=== PATIENT | female | born 1965 | race Caucasian/White ===

== ENCOUNTER 2024-04-03 12:57 | Outpatient (RCR) | payer BC, SELFPAY | END 2024-04-03 23:59 | disposition home or self-care (01) | LOC: RPT 12:57 | PROVIDERS: ATTENDING PHYSICIAN Nurse Practitioner Acute Care | DX: M54.15 Radiculopathy, thoracolumbar region (principal); M47.816 Spondylosis without myelopathy or radiculopathy, lumbar region; M53.3 Sacrococcygeal disorders, not elsewhere classified; Z73.6 Limitation of activities due to disability | CPT/HCPCS: 97010; 97110; 97112; 97140; 97162 ==

== ENCOUNTER 2024-04-12 19:14 | Outpatient (RCR) | payer BC, SELFPAY | END 2024-04-12 23:59 | disposition home or self-care (01) | LOC: RPT 19:14 | PROVIDERS: ATTENDING PHYSICIAN Nurse Practitioner Acute Care | DX: M47.816 Spondylosis without myelopathy or radiculopathy, lumbar region (principal); M54.15 Radiculopathy, thoracolumbar region; Z73.6 Limitation of activities due to disability | CPT/HCPCS: 97010; 97110; 97112; 97140 ==

== ENCOUNTER → 2024-05-31 20:01 | Outpatient (REF) | payer BC, SELFPAY | LOC: MRI 3T 20:01 | PROVIDERS: ATTENDING PHYSICIAN Student in an Organized Health Care Education/Training Program | DX: M54.16 Radiculopathy, lumbar region (principal); M51.36 Other intervertebral disc degeneration, lumbar region | CPT/HCPCS: 72148 ==

== ENCOUNTER → 2024-08-31 12:56 | Outpatient (REF) | payer BC, SELFPAY | LOC: HWWDC 12:56 | PROVIDERS: ATTENDING PHYSICIAN Obstetrics & Gynecology; FAMILY PHYSICIAN Nurse Practitioner Primary Care | DX: Z12.31 Encounter for screening mammogram for malignant neoplasm of breast (principal) | CPT/HCPCS: 77063; 77067 ==